=== PATIENT | female | born 2000 | race Caucasian/White ===

== ENCOUNTER 2023-08-18 20:43 | Emergency (ER) | payer OTHER ==
[2023-08-18] MEDS ORDERED: Bupivacaine 0.25% 10 ML VIAL ONE (22:25)
[2023-08-18] MEDS ORDERED: Lidocaine 1% PF 5 ML VIAL ONE (22:25)
[2023-08-18] MEDS ORDERED: Ketorolac Tromethamine 30 MG/ML VIAL ONE (22:28)
[2023-08-18] MEDS ORDERED: CEFAZOLIN 2 GM VIAL ONE (22:28)
[2023-08-18] MEDS ORDERED: Sodium Chloride 0.9% 100 ML ONE (22:28)
[2023-08-19] MEDS ORDERED: Bacitracin 1 PK ONE (01:39)
== END 2023-08-19 01:45 | disposition home or self-care (01) ==
LOC: ERS 20:43
DX: S62.636A Displaced fracture of distal phalanx of right little finger, initial encounter for closed fracture (principal); S61.316A Laceration without foreign body of right little finger with damage to nail, initial encounter; W23.0XXA Caught, crushed, jammed, or pinched between moving objects, initial encounter
CPT/HCPCS: 11760; 96365; 96375; J1885; J3490; S0020

== ENCOUNTER 2024-09-07 16:06 | Emergency (ER) | payer OTHER ==
[2024-09-07 18:24] LABS: Bacteria/HPF None Seen HPF (None Seen); Bilirubin Negative (Negative); Blood, Urine Negative (Negative); CAUTI Indications for Culture Pelvic or flank pain; Clarity Clear (Clear); Glucose, Urine (Dipstick) Normal (Negative); Ketone, Urine Negative (Negative); Leukocyte Negative Leu/uL (Negative); Nitrite Negative (Negative); Protein, Urine (Dipstick) Negative (Neg-Trace); RBC/HPF 0-3 HPF (0-3); Specific Gravity, Urine 1.009 (1.002-1.036); Urobilinogen Normal mg/dL (Less than 2); WBC/HPF 0-3 HPF (0-3)
[2024-09-07 18:27] LABS: Urine Culture Reflex No No
[2024-09-07 18:28] LABS: #Basophils Less than 0.03 10x3/uL (0.0-0.2); %Basophils 0.2 % (0.0-1.0); %Eosinophils 0.3 % (0.0-10.0); %Lymphocytes 35.6 % (21.0-51.0); %Monocytes 4.4 % (0.0-10.0); %Neutrophils 59.3 % (42.0-75.0); Hematocrit 41.3 % (36.0-47.0); Hemoglobin 14.4 g/dL (12.0-16.0); Mean Corpuscular HGB CONC 34.9 g/dL (32.0-36.0); Mean Corpuscular Hemoglobin 29.4 pg (27.0-31.0); Mean Corpuscular Volume 84.3 fL (78.0-98.0); Platelet Count 276 10x3/uL (130-400); RBC Distribution Width 11.5 % (11.5-14.5)
[2024-09-07 18:46] LABS: BHCG - Serum Negative (NEGATIVE); Pregs Control Background? CLEAR/WHITE (CLR/WHITE); Pregs Control Bar Appear? YES (CONTROL BAR)
[2024-09-07 18:52] LABS: ALT (SGPT) 11 U/L (8-55); AST (SGOT) 20 U/L (5-34); Albumin 4.3 g/dL (3.5-5.0); Alkaline Phosphatase 41 U/L (40-110); Anion Gap 13 mmol/L (10-20); BUN (Urea Nitrogen) 15 mg/dL (7.0-18.7); Bilirubin, Total 0.5 mg/dL (0.2-1.2); Calc. Creatinine Clearance 0 mL/min (70-130); Calcium 9.5 mg/dL (7.8-10.44); Carbon Dioxide 23 mmol/L (22-29); Chloride 107 mmol/L (98-107); Estimated GFR 94; Globulin 3.3 g/dL (2.4-3.5); Glucose 89 mg/dL (70-105); Lipase 48 U/L (8-78); Potassium 4.2 mmol/L (3.5-5.1); Protein, Total 7.6 g/dL (6.0-8.3); Sodium 139 mmol/L (136-145)
== END 2024-09-07 20:01 | disposition home or self-care (01) ==
LOC: ERS 16:06
DX: N83.202 Unspecified ovarian cyst, left side (principal)
CPT/HCPCS: 36415; 76856; 80053; 81001; 83690; 84703; 85025